=== PATIENT | female | born 1990 | race Hispanic/Latino ===

== ENCOUNTER 2018-02-09 05:50 | Observation (INO) | payer BC ==
--- NOTE | 2018-02-03 09:27 | History and Physical Report ---
History of Present Illness Date of examination: 02/05/18 Date of admission: 02/09/18 Chief complaint: pelvic pain/ heavy periods History of present illness: Pt has h/o endometriosis. She currently has the paragard IUD and recently has had more pelvic pain and heavier periods. She has not been on contraceptives or hormone therapy due to h/o PE during . She was advised of options including but not limited to removal of the device and BTL, but pt declines stating that her periods have always been painful and heavy and would continue to do so. Pt desired hyst. All risk, benefits and alternatives were d/w on several visits over a period of time and she still desires this procedure.She understands that with endometriosis as long as her ovaries are in place, she may continue to have pt. Pt desires removal of the uterus as she is not able to take medications traditionally given for menorrhagia due to h/o PE. Consents were signed and placed on the chart. Pt states she has had painful coitus for the past 2months and having 2 periods each month that are two weeks apart. Pt states each times she bleeds it is a full flow last 4 days. No previous episodes. Pt has a paragard in place. Pt states she also has pain with sex with rear entry or deep penetration. Again both sx present for the last 2months. Vital Signs: Patient Profile: 27 Years Old Female LMP: 11/09/2017 Height: 65 inches (165.10 cm) Weight: 119 pounds BMI: 19.80 BP sittin / 80 (left arm) Menstrual History: LMP (date): 11/09/2017 Current Method of Contraception: IUD Date of Last Pap Smear: 07/17/2013 Past History : 3 Term Births: 1 Living Children: 1 Para: 1 Aborta: 2 Elect. 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 of genital herpes: no Partner hx. of genital herpes: no Hx of STD: None Active Medications (reviewed today): DIFLUCAN 150 MG ORAL TABLET (FLUCONAZOLE) 1 tab po times one FLAGYL 500 MG ORAL TABLET (METRONIDAZOLE) 1 tab po bid ULTRAM 50 MG ORAL TABLET (TRAMADOL HCL) 1-2 po three times per day NAPROSYN 500 MG ORAL TABLET (NAPROXEN) 1 tab po BID prn pain PERCOCET 5-325 MG ORAL TABLET (OXYCODONE-ACETAMINOPHEN) one po q 4 hrs prn pain TINDAMAX 500 MG ORAL TABLET (TINIDAZOLE) one by mouth twice a day IRON TABS () IBUPROFEN 800 MG ORAL TABLET (IBUPROFEN) 1 po q6 hr prn pain Current Allergies (reviewed today): No known allergies Past Medical History: Reviewed history from 08/07/2011 and no changes required: Pulmonary embolism Past Surgical History: Reviewed history from 02/20/2012 and no changes required: Op LSC ablation of endometriosis(02/20/12) Family History Summary: Reviewed history Last on 02/17/2012 and no changes required:12/01/2017 General Comments - FH: no breast, ovarian or colon cancer Social History: Reviewed history from 08/21/2011 and no changes required: no etoh, no illicit drug use, no tobacco use Patient is Risk Factors: PAP Smear History: Date of Last PAP Smear: 07/17/2013 Review of Systems See HPI Laboratory Results Urine HCG: negative Past History Past Medical History: other (PE) Past Surgical History: other (see HPI) 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 Family/Genetic History: other (see hpi) Social history: no significant social history, single Medications and Allergies Allergies Allergy/AdvReac Type Severity Reaction Status Date / Time No Known Allergies Allergy Unverified 02/02/18 17:02 Home Medications Medication Instructions Recorded Confirmed Last Taken Type Pseudoephedrine [Sudafed] 30 mg PO DAILY 02/02/18 02/02/18 Unknown History Review of Systems All systems: negative - Physical Exam Cardiovascular: Normal S1, Normal S2 Lungs: Positive: Clear to auscultation, Normal air movement Abdomen: Positive: normal appearance Genitourinary (Female): Positive: normal external genitalia, normal perenium Extremities: Positive: normal. Negative: tenderness, edema Results Result Diagrams: 02/03/18 10:46 02/03/18 10:46 All other labs normal. Assessment and Plan - Patient Problems (1) Menorrhagia Status: Acute Qualifiers: Menorrahagia type: with irregular cycle Qualified Code(s): N92.1 - Excessive and frequent menstruation with irregular cycle Plan to address problem: -admit for removal of paragard IUD, lavh with bs -consents signed and placed on the chart (2) Dysmenorrhea Status: Acute
[2018-02-03 11:21] LABS: Basophils % (Auto) 0.4 % (0.0-1.8); Eosinophils # (Auto) 0.2 K/mm3 (0.0-0.4); Eosinophils % (Auto) 1.8 % (0.0-4.3); Hematocrit 40.3 % (30.3-42.9); Hemoglobin 13.9 gm/dl (10.1-14.3); Lymphocytes # (Auto) 1.3 K/mm3 (1.2-5.4); Lymphocytes % (Auto) 15.8 % (13.4-35.0); Mean Corpuscular HGB Conc 35 % (30-34); Mean Corpuscular Hemoglobin 32 pg (28-32); Mean Corpuscular Volume 94 fl (79-97); Monocytes # (Auto) 0.8 K/mm3 (0.0-0.8); Monocytes % (Auto) 9.1 % (0.0-7.3); Platelet Count 174 K/mm3 (140-440); Red Blood Count 4.31 M/mm3 (3.65-5.03); Red Cell Distribution Width 12.7 % (13.2-15.2)
--- NOTE | 2018-02-03 11:25 | Anesthesia Consultation ---
Anesthesia Consult and Med Hx Date of service: 02/03/18 - Airway Anesthetic Teeth Evaluation: Good ROM Head & Neck: Adequate Mental/Hyoid Distance: Adequate Mallampati Class: Class I Intubation Access Assessment: Good - Pulmonary Exam CTA: No (pt is a smoker and has exp wheezing in clinic, start albuterol tx) - Cardiac Exam Cardiac Exam: RRR - Pre-Operative Health Status ASA Pre-Surgery Classification: ASA2 Proposed Anesthetic Plan: General - Central Nervous System Hx Psychiatric Problems: No - Other Systems Hx Alcohol Use: Yes (occas) Hx Cancer: No
[2018-02-03 11:41] LABS: BUN/Creatinine Ratio 15; Blood Urea Nitrogen 9 mg/dL (7-17); Calcium 9.4 mg/dL (8.4-10.2); Hemolysis Index 21
[~2018-02-09 05:50] MED LIST: ANCEF/STERILE WATER 2 GM/20 ML 2 GM/20 ML SYRINGE IV SCH; MARCAINE 0.5% INFILTRATI ONE; NACL 0.9% IR ONE; NACL 0.9% IV ONE; Vasostrict IV ONE
[2018-02-09] MEDS ORDERED: NEURONTIN PO NR (06:00)
[2018-02-09] MEDS ORDERED: VERSED IV NR (06:00)
[2018-02-09] MEDS ORDERED: MARCAINE 0.5% 30 ML INFILTRATI ONE (06:38)
[2018-02-09] MEDS ORDERED: METHYLENE BLUE ONE (06:39)
[2018-02-09] MEDS ORDERED: Vasostrict ONE (06:39)
[2018-02-09] MEDS ORDERED: NACL 0.9% 100 ML ONE (06:39)
[2018-02-09] MEDS: LACTATED RINGERS 1,000 ML IV SCH ×2 (06:50→20:50)
[2018-02-09] MEDS ORDERED: SUBLIMAZE ONE (07:01)
[2018-02-09] MEDS ORDERED: DIPRIVAN 10 MG/ML IV ONE (07:01)
[2018-02-09] MEDS ORDERED: ANCEF/STERILE WATER 2 GM/20 ML IV NR (08:00)
[2018-02-09] MEDS ORDERED: ZOFRAN ONE (08:52)
[2018-02-09] MEDS ORDERED: BLOXIVERZ ONE (08:52)
[2018-02-09] MEDS ORDERED: ROBINUL ONE (08:52)
[2018-02-09] MEDS ORDERED: ZEMURON IV ONE (08:52)
[2018-02-09] MEDS ORDERED: XYLOCAINE MPF 2% ONE (08:52)
[2018-02-09] MEDS ORDERED: DECADRON ONE (09:00)
[2018-02-09] MEDS ORDERED: DILAUDID ONE ×2 (09:20→10:32)
[2018-02-09] MEDS ORDERED: NACL 0.9% 1000 ML 1,000 ML ONE (09:35)
[2018-02-09] MEDS ORDERED: TORADOL ONE (09:41)
[2018-02-09] MEDS ORDERED: ZOFRAN IV PRN (10:05)
--- NOTE | 2018-02-09 10:05 | Operative Report ---
Operative Report Operative Report: Date of procedure: 02/09/2018 Pre-operative diagnosis: Menorrhagia Dysmenorrhea Contraindication to hormonal therapy History of pulmonary embolism History of endometriosis Post-operative diagnosis: Same Procedure name(s): Removal of intrauterine device Laparoscopic assisted vaginal hysterectomy Bilateral salpingectomy Surgeon: Margarita Torrez MD Wool Hat Finisher: Dr. Bettina Pinto Anesthesia: General endotracheal anesthesia EBL: 50 mL Urine output: 400 mL of clear urine out at the end of procedure Fluids: 1100 mL Findings: Grossly normal fallopian tubes and ovaries bilaterally Normal uterus Intact ParaGard device removed from the cervix without difficulty Indications: Patient with a history of endometriosis and dysmenorrhea presents with onset of prolonged heavy bleeding. Patient also reported having bleeding twice a month for the last several months. Patient had a negative endometrial biopsy as well as negative for the next few sonogram. Patient with history of pulmonary embolism was not a candidate for hormonal therapy. Patient desired definitive therapy. Patient desired removal of ParaGard device. All risks benefits and alternatives were discussed with the patient. Consents were signed and placed on the chart. Procedure: Patient was taken to the operating room where she was placed under general endotracheal anesthesia. She was then prepped and draped in sterile fashion. The strings of the intrauterine device was grasped and the intrauterine device removed intact. It was at this point that the large V care uterine manipulator was placed inside of the uterus after the uterus was sounded to approximately 9 cm. Argueta catheter was also placed at this time. Attention was then turned to the umbilicus in which a supraumbilical incision was made. Under direct visualization the 5 mm trocar was placed inside the peritoneum the peritoneum was then insufflated. As at this point that the laparoscopic portion of the procedure was performed. 2 other 5 mm ports were also placed under direct visualization. Using the tripolar instrument LigaSure device the upper pedicles were cauterized and transected to the including round ligament with excellent hemostasis noted bilaterally. Attention was then turned vaginally. A weighted speculum was placed into the vagina and the cervix was grasped with a single-tooth tenaculum 2. The cervix was then injected circumferentially with Pitressin. The cervix was then circumferentially incised with the scalpel and the bladder dissected off of the pubovesical cervical fascia anteriorly with a sponge stick and Metzenbaum scissors. The same procedure was performed posteriorly and the posterior cul-de-sac was entered into sharply without difficulty. At this point a Tyrone Clamp was placed over the uterosacral ligaments on either side. These were then transected and suture ligated with 0 Vicryl. Hemostasis was assured. The cardinal ligaments were then clamped on both sides transected and suture ligated in similar fashion. The uterine arteries were then serially clamped with Tyrone clamps transected and suture ligated on both sides. Excellent hemostasis was visualized. After it was clear that the uterus had been completely from all pedicles the uterus was removed vaginally intact with cervix intact. The vaginal cuff angles were closed with figure of 8 stitches of 0 Vicryl on both sides. The peritoneum was incorporated in the stitching of the vaginal cuff. A series of interrupted figure of 8 sutures using 0 Vicryl were used to close the entire vaginal cuff. Excellent hemostasis was noted. The vagina was then irrigated copiously. Attention was then turned laparoscopically at which time Tisseel was placed along the vaginal cuff laparoscopically. Again all pedicles were noted to be hemostatic. The ureters were identified bilaterally with peristalsis noted bilaterally. It should be noted also that during the procedure there was retrograde filling of the bladder with methylene blue. All instruments were then removed from the abdomen and the vagina. All gas was released from the abdomen. The abdominal incisions were closed using 4-0 Monocryl. All of the abdominal incisions were injected with Marcaine without epi. Patient tolerated the procedure well sponge lap and needle counts were all correct 3 the patient was taken to the recovery room awake and in stable condition.
[2018-02-09] MEDS: DILAUDID IV PRN ×4 (10:30→14:45)
[2018-02-09] MEDS ORDERED: MORPHINE IV PRN (11:00)
[2018-02-09] MEDS: NORCO 5/325 PO PRN ×3 (11:03→23:02)
[2018-02-09] MEDS: ANCEF/NS 1 GM/50 ML 1 GM/50 ML BAG IV SCH ×2 (16:01→23:05)
[2018-02-09] MEDS: COLACE PO SCH ×2 (20:36→21:00)
[2018-02-09] MEDS ORDERED: LOVENOX SUB-Q ONE (22:00)
[2018-02-10] MEDS: NORCO 5/325 PO PRN ×2 (02:46→07:37)
[2018-02-10 05:51] LABS: Hematocrit 33.6 % (30.3-42.9); Hemoglobin 11.8 gm/dl (10.1-14.3)
--- NOTE | 2018-02-10 10:13 | Progress Note ---
Assessment and Plan - Patient Problems (1) Menorrhagia Status: Acute Qualifiers: Menorrahagia type: with irregular cycle Qualified Code(s): N92.1 - Excessive and frequent menstruation with irregular cycle (2) Dysmenorrhea Status: Acute (3) S/P laparoscopic assisted vaginal hysterectomy (LAVH) Status: Acute Plan to address problem: -routine post po care -d/c home this am Subjective - Subjective Date of service: 02/10/18 Principal diagnosis: POD #1 s/p LAVH with BS Interval history: Pt doing well. Ambulating in weiss returning from outside smoking. She tolerated a regular diet and pain is better controlled. I d/w post op care and limitations of activity. I also d/w the importance of not smoking during this healing period so that she does not have any respiratory issues or poor wound healing. Pt expressed understanding and all questions were addressed and answered. Patient reports: appetite normal, voiding normally, pain well controlled, flatus , ambulating normally, no dizzy ambulation, no nauseated Objective - Vital Signs Latest vital signs: Vital Signs Temp Pulse Resp BP BP Pulse Ox 02/10/18 08:15 98.7 F 71 16 115/65 95 02/10/18 06:00 98.4 F 72 16 117/64 02/10/18 04:00 98.6 F 65 18 107/68 02/09/18 23:30 98.7 F 70 16 102/69 02/09/18 19:30 98.7 F 77 18 104/78 02/09/18 15:55 97.9 F 56 L 18 78/42 02/09/18 15:52 20 02/09/18 14:45 20 02/09/18 14:21 20 02/09/18 13:51 18 02/09/18 11:25 98.6 F 56 L 20 102/63 102/63 96 02/09/18 11:10 98.4 F 60 16 104/62 95 02/09/18 11:03 13 02/09/18 11:00 58 L 13 100/56 96 02/09/18 10:45 58 L 12 111/65 99 02/09/18 10:43 12 02/09/18 10:30 59 L 14 129/74 100 02/09/18 10:25 56 L 13 131/80 100 02/09/18 10:20 63 16 127/76 100 02/09/18 10:16 97.5 F L 61 12 132/79 100 Intake and Output 02/09/18 02/10/18 02/10/18 22:59 06:59 14:59 Intake Total 6001 977 8098 Output Total 1800 900 Balance -750 -50 1240 Intake: IV 1050 50 1000 ANCEF/NS 1 GM/50 ML 1 gm 50 50 In 50 ml @ 100 mls/hr IV Q8H WHITNEY Rx#:[id number] Lactated Ringers 1,000 ml 1000 1000 @ 100 mls/hr IV DIRECT WHITNEY Rx#:[id number] Oral 200 240 Intake, Free Water 600 Output: Urine 1800 900 Indwelling Catheter 1800 900 Other: Intake, Other Source Saline Solution Total, Intake Amount 200 240 Total, Output Amount 900 900 - Exam Breasts: Present: deferred Cardiovascular: Present: Normal S1, Normal S2 Lungs: Present: Clear to auscultation, Normal air movement Abdomen: Present: normal appearance, soft, normal bowel sounds. Absent: distention, tenderness, guarding Extremities: Present: normal. Absent: tenderness, edema Deep Tendon Reflex Grade: Normal +2 Incision: Present: normal, dry, intact
--- NOTE | 2018-02-10 10:14 | Discharge Summary ---
Providers - Providers Date of Admission: 02/09/18 10:05 Date of discharge: 02/10/18 Attending physician: RADHA BALL Primary care physician: REWINDER OPERATOR HELPER Hospitalization Reason for admission: other (lavh with bs) Procedure: other (LAVH W/ BS) Procedure details: SEE OP NOTE Incision: normal, dry, intact Hospital course: Pt s/p above stated procedure. Post op course was not complicated. She did get lovanoxx times one dose due to h/o PE in with recent negative hematology work up. Pt desires d/c home today and is doing well. Condition at discharge: Good Disposition: DC-01 TO HOME OR SELFCARE - Discharge Diagnoses (1) Menorrhagia Status: Acute Qualifiers: Menorrahagia type: with irregular cycle Qualified Code(s): N92.1 - Excessive and frequent menstruation with irregular cycle (2) Dysmenorrhea Status: Acute Plan - Discharge Medications Prescriptions: Ibuprofen 800 mg PO Q6HR #30 tablet oxyCODONE /ACETAMINOPHEN [Percocet 5/325] 1 tab PO Q4HR #30 tab - Provider Discharge Summary Additional instructions: [] Smoking cessation referral if applicable(refer to patient education folder for contact #) [] Refer to [facility]'s [facility] Booklet Call your doctor immediately for: * Fever > 100.5 * Heavy vaginal bleeding ( >1 pad per hour) * Severe persistent headache * Shortness of breath * Reddened, hot, painful area to leg or breast * Drainage or odor from incision. * Keep incision clean and dry at all times and follow doctor's instructions regarding bathing/showering - Follow up plan Follow up: PRIMARY CARE, [Primary Care Provider] - 7 Days Forms: [facility] Discharge Summary
[2018-02-10 10:45] VITALS: BP 116/59
== END 2018-02-10 11:00 | disposition home or self-care (01) ==
LOC: OR 05:50 → OB 10:05
PROVIDERS: ADMIT Obstetrics & Gynecology; ATTEND Obstetrics & Gynecology
DX: N92.1 Excessive and frequent menstruation with irregular cycle (principal); N94.6 Dysmenorrhea, unspecified; F17.200 Nicotine dependence, unspecified, uncomplicated; Z86.711 Personal history of pulmonary embolism; Z72.89 Other problems related to lifestyle
CPT/HCPCS: 36415; 58552; 80048; 84703; 85014; 85018; 85025; 86850; 86900; 86901; 88302; 88307; 96365; 96366; 96372; 96375; 96376; A4217; C1765; G0378; J0690; J1100; J1170; J1650; J1885; J2250; J2270; J2405; J2704; J2710; J3010; J7030; J7120; Q9968